=== PATIENT | male | born 1960 | race Caucasian/White ===

== ENCOUNTER 2021-12-14 11:00 | Inpatient (IN) | payer OTHER ==
[2021-12-14 13:06] VITALS: BMI 21.6
[2021-12-14] MEDS ORDERED: MAGNESIUM HYDROX 2400MG/30ML ORAL SUSPENSION 30 ML CUP PO PRN (21:05)
[2021-12-14] MEDS ORDERED: NICOTINE POLACRILEX 2 MG GUM BUC PRN (21:05)
[2021-12-14] MEDS ORDERED: P-EPHED 60MG/TRIPROLIDI 2.5MG TABLET PO PRN (21:05)
[2021-12-14] MEDS ORDERED: ACETAMINOPHEN 325 MG TABLET (FP) PO PRN (21:05)
[2021-12-14] MEDS ORDERED: MAGNESIUM CITRATE 300 ML BOTTLE PO PRN (21:05)
[2021-12-14] MEDS ORDERED: guaiFENesin 200 MG/10 ML 10 ML UNIT-DOSE CUPS PO PRN (21:05)
[2021-12-14] MEDS ORDERED: BENZOCAINE/MENTHOL (CHLORASEPTIC ) LOZENGE MM PRN (21:05)
[2021-12-14] MEDS ORDERED: NALOXONE HCL (KLOXXADO) 8 MG SPRAY NS PRN (21:05)
[2021-12-14] MEDS ORDERED: IBUPROFEN 400 MG TABLET (FP) PO PRN (21:05)
[2021-12-14] MEDS ORDERED: IBUPROFEN 600 MG TABLET (FP) PO PRN (21:05)
[2021-12-14] MEDS ORDERED: LOPERAMIDE HCL 2 MG CAPSULE PO PRN (21:05)
[2021-12-14] MEDS ORDERED: BISMUTH SUBSALICYLATE 524 MG/30 ML PO PRN (21:05)
[2021-12-14] MEDS ORDERED: hydrOXYzine PAMOATE 25 MG CAPSULE (FP) PO ONE (23:32)
[2021-12-14] MEDS ORDERED: METOPROLOL TARTRATE 25 MG TABLET (FP) ONE (23:33)
[2021-12-14] MEDS: METOPROLOL TARTRATE 25 MG TABLET (FP) PO SCH (23:33)
[2021-12-14] MEDS: THIAMINE HCL 100 MG TABLET (FP) PO SCH (23:33)
[2021-12-14] MEDS: hydrOXYzine PAMOATE 25 MG CAPSULE (FP) PO SCH (23:33)
[2021-12-14] MEDS: MELATONIN 5 MG TABLETS PO SCH (23:33)
[2021-12-15] MEDS ORDERED: hydrOXYzine PAMOATE 25 MG CAPSULE (FP) PO ONE ×2 (06:48→10:01)
[2021-12-15] MEDS ORDERED: METOPROLOL TARTRATE 25 MG TABLET (FP) ONE (06:48)
[2021-12-15] MEDS: hydrOXYzine PAMOATE 25 MG CAPSULE (FP) PO SCH ×5 (07:25→22:21)
[2021-12-15] MEDS ORDERED: cloNIDine HCL 0.1 MG TABLET ONE (09:26)
[2021-12-15] MEDS ORDERED: cloNIDine HCL 0.1 MG TABLET PO ONE (09:30)
[2021-12-15] MEDS: PRENATAL VITAMINS W/ FOLIC ACID TABLET (FP) PO SCH (09:34)
[2021-12-15] MEDS: TAMSULOSIN HCL 0.4 MG CAP PO SCH (11:56)
[2021-12-15] MEDS: PANTOPRAZOLE 40 MG TABLET PO SCH (11:58)
[2021-12-15] MEDS: NICOTINE 14 MG/24 HOURS TOPICAL PATCH TD SCH (11:58)
[2021-12-15] MEDS: MONTELUKAST NA 10 MG TABLET PO SCH (11:58)
[2021-12-15] MEDS: FERROUS SO4 325 MG TABLET (FP) PO SCH (11:59)
[2021-12-15] MEDS: METHOCARBAMOL 500 MG TABLET PO PRN (13:27)
[2021-12-15] MEDS: METOPROLOL TARTRATE 25 MG TABLET (FP) PO SCH ×2 (13:38→22:21)
[2021-12-15] MEDS: LIPASE/PROTEASE/AMYLASE 6,000 UNIT CAPSULE PO SCH ×2 (15:47→19:15)
[2021-12-15] MEDS: THIAMINE HCL 100 MG TABLET (FP) PO SCH (22:21)
[2021-12-15] MEDS: MELATONIN 5 MG TABLETS PO SCH (22:21)
[2021-12-16] MEDS: hydrOXYzine PAMOATE 25 MG CAPSULE (FP) PO SCH ×5 (05:18→22:15)
[2021-12-16] MEDS: LIPASE/PROTEASE/AMYLASE 6,000 UNIT CAPSULE PO SCH ×3 (08:05→17:20)
[2021-12-16] MEDS ORDERED: chlordiazePOXIDE HCL 25 MG CAPSULE PO PRN (09:24)
[2021-12-16] MEDS: PANTOPRAZOLE 40 MG TABLET PO SCH (10:16)
[2021-12-16] MEDS: METOPROLOL TARTRATE 25 MG TABLET (FP) PO SCH ×2 (10:16→22:15)
[2021-12-16] MEDS: TAMSULOSIN HCL 0.4 MG CAP PO SCH (10:16)
[2021-12-16] MEDS: PRENATAL VITAMINS W/ FOLIC ACID TABLET (FP) PO SCH (10:17)
[2021-12-16] MEDS: FERROUS SO4 325 MG TABLET (FP) PO SCH (10:17)
[2021-12-16] MEDS: MONTELUKAST NA 10 MG TABLET PO SCH (10:17)
[2021-12-16] MEDS: NICOTINE 14 MG/24 HOURS TOPICAL PATCH TD SCH (10:18)
[2021-12-16] MEDS: chlordiazePOXIDE HCL 25 MG CAPSULE PO SCH ×3 (10:19→22:17)
[2021-12-16 10:22] LABS: HEMATOCRIT 48.3 % (35.4-49); HEMOGLOBIN 16.5 GM/dL (11.7-16.9); MCH 35.8 pg (25.7-33.7); MCHC 34.1 g/dl (32.0-35.9); MEAN CELL VOLUME 105.2 fl (80-96); MEAN PLT VOLUME 9.5 fl (7.5-11.1); PLATELET COUNT 132 10^3/uL (134-434); RBC 4.59 M/mm3 (4.00-5.60); RDW 13.3 % (11.9-15.9); WHITE BLOOD COUNT 6.5 K/mm3 (4.0-10.0)
[2021-12-16 10:36] LABS: ALBUMIN 2.6 g/dl (3.4-5.0); BLOOD UREA NITROGEN 5.9 mg/dL (7-18); CALCIUM 9.1 mg/dL (8.5-10.1)
[2021-12-16 10:39] LABS: CREATININE 0.7 mg/dL (0.55-1.3)
[2021-12-16 10:41] LABS: BILIRUBIN,TOTAL 0.4 mg/dL (0.2-1); TOT PROT 5.9 g/dl (6.4-8.2)
[2021-12-16] MEDS: THIAMINE HCL 100 MG TABLET (FP) PO SCH (22:15)
[2021-12-16] MEDS: MELATONIN 5 MG TABLETS PO SCH (22:16)
[2021-12-17] MEDS: hydrOXYzine PAMOATE 25 MG CAPSULE (FP) PO SCH ×5 (05:26→22:56)
[2021-12-17] MEDS: chlordiazePOXIDE HCL 25 MG CAPSULE PO SCH ×2 (05:26→10:15)
[2021-12-17] MEDS: LIPASE/PROTEASE/AMYLASE 6,000 UNIT CAPSULE PO SCH ×3 (07:15→17:44)
[2021-12-17] MEDS: METHOCARBAMOL 500 MG TABLET PO PRN (07:36)
[2021-12-17] MEDS: METOPROLOL TARTRATE 25 MG TABLET (FP) PO SCH ×2 (10:16→22:15)
[2021-12-17] MEDS: MONTELUKAST NA 10 MG TABLET PO SCH (10:16)
[2021-12-17] MEDS: FERROUS SO4 325 MG TABLET (FP) PO SCH (10:16)
[2021-12-17] MEDS: PANTOPRAZOLE 40 MG TABLET PO SCH (10:16)
[2021-12-17] MEDS: TAMSULOSIN HCL 0.4 MG CAP PO SCH (10:16)
[2021-12-17] MEDS: NICOTINE 14 MG/24 HOURS TOPICAL PATCH TD SCH (10:17)
[2021-12-17] MEDS: PRENATAL VITAMINS W/ FOLIC ACID TABLET (FP) PO SCH (10:17)
[2021-12-17] MEDS: MAG HYDROX/AL HYDROX/SIMETH 30 ML UNIT-DOSE CUP PO PRN (12:41)
[2021-12-17] MEDS ORDERED: LORazepam 1 MG TABLET PO PRN (15:23)
[2021-12-17] MEDS ORDERED: LIPASE/PROTEASE/AMYLASE 6,000 UNIT CAPSULE PO PRN (15:36)
[2021-12-17] MEDS: LORazepam 2 MG TABLET PO SCH ×2 (17:45→22:27)
[2021-12-17] MEDS: FAMOTIDINE 20 MG TABLET PO SCH (22:15)
[2021-12-17] MEDS: THIAMINE HCL 100 MG TABLET (FP) PO SCH (22:15)
[2021-12-17] MEDS: MELATONIN 5 MG TABLETS PO SCH (22:56)
[2021-12-18] MEDS ORDERED: chlordiazePOXIDE HCL 25 MG CAPSULE PO SCH (05:00)
[2021-12-18] MEDS: hydrOXYzine PAMOATE 25 MG CAPSULE (FP) PO SCH ×5 (05:11→22:20)
[2021-12-18] MEDS: LORazepam 2 MG TABLET PO SCH ×4 (05:11→22:20)
[2021-12-18] MEDS: LIPASE/PROTEASE/AMYLASE 6,000 UNIT CAPSULE PO SCH ×3 (07:55→17:26)
[2021-12-18] MEDS: METHOCARBAMOL 500 MG TABLET PO PRN (10:27)
[2021-12-18] MEDS: TAMSULOSIN HCL 0.4 MG CAP PO SCH (10:27)
[2021-12-18] MEDS: METOPROLOL TARTRATE 25 MG TABLET (FP) PO SCH ×2 (10:27→22:20)
[2021-12-18] MEDS: FAMOTIDINE 20 MG TABLET PO SCH ×2 (10:27→22:20)
[2021-12-18] MEDS: NICOTINE 14 MG/24 HOURS TOPICAL PATCH TD SCH (10:27)
[2021-12-18] MEDS: DICYCLOMINE HCL 10 MG CAPSULE PO PRN (10:27)
[2021-12-18] MEDS: PRENATAL VITAMINS W/ FOLIC ACID TABLET (FP) PO SCH (10:28)
[2021-12-18] MEDS: MONTELUKAST NA 10 MG TABLET PO SCH (10:28)
[2021-12-18] MEDS: MELATONIN 5 MG TABLETS PO SCH (22:20)
[2021-12-18] MEDS: THIAMINE HCL 100 MG TABLET (FP) PO SCH (22:20)
[2021-12-19] MEDS ORDERED: chlordiazePOXIDE HCL 10 MG CAPSULE PO PRN
[2021-12-19] MEDS ORDERED: chlordiazePOXIDE HCL 10 MG CAPSULE PO SCH (05:00)
[2021-12-19] MEDS: hydrOXYzine PAMOATE 25 MG CAPSULE (FP) PO SCH ×5 (05:26→22:24)
[2021-12-19] MEDS: LORazepam 1 MG TABLET PO SCH ×4 (05:26→22:22)
[2021-12-19] MEDS: LIPASE/PROTEASE/AMYLASE 6,000 UNIT CAPSULE PO SCH ×3 (07:46→17:45)
[2021-12-19] MEDS: METHOCARBAMOL 500 MG TABLET PO PRN (10:24)
[2021-12-19] MEDS: NICOTINE 14 MG/24 HOURS TOPICAL PATCH TD SCH (10:24)
[2021-12-19] MEDS: METOPROLOL TARTRATE 25 MG TABLET (FP) PO SCH ×2 (10:24→22:21)
[2021-12-19] MEDS: FAMOTIDINE 20 MG TABLET PO SCH ×2 (10:24→22:21)
[2021-12-19] MEDS: PRENATAL VITAMINS W/ FOLIC ACID TABLET (FP) PO SCH (10:25)
[2021-12-19] MEDS: MONTELUKAST NA 10 MG TABLET PO SCH (10:25)
[2021-12-19] MEDS: TAMSULOSIN HCL 0.4 MG CAP PO SCH (10:25)
[2021-12-19 16:56] LABS: PH,URINE 8.5 (5.0-8.0); URINE APPEARANCE CLEAR; URINE BILIRUBIN NEGATIVE (NEGATIVE); URINE COLOR YELLOW; URINE GLUCOSE (UA) NEGATIVE (NEGATIVE); URINE KETONE NEGATIVE (NEGATIVE); URINE LEUK ESTERASE NEGATIVE (NEGATIVE); URINE NITRITE NEGATIVE (NEGATIVE); URINE PROTEIN NEGATIVE (NEGATIVE); URINE UROBILINOGEN 0.2 mg/dL (0.2-1.0)
[2021-12-19] MEDS: THIAMINE HCL 100 MG TABLET (FP) PO SCH (22:21)
[2021-12-19] MEDS: MELATONIN 5 MG TABLETS PO SCH (22:23)
[2021-12-20] MEDS ORDERED: LORazepam 0.5 MG TABLET PO PRN
[2021-12-20] MEDS: ONDANSETRON *ODT* 4 MG TABLET SL PRN ×2 (02:39→10:52)
[2021-12-20] MEDS: DICYCLOMINE HCL 10 MG CAPSULE PO PRN (02:39)
[2021-12-20] MEDS ORDERED: chlordiazePOXIDE HCL 10 MG CAPSULE PO SCH (05:00)
[2021-12-20] MEDS: MAG HYDROX/AL HYDROX/SIMETH 30 ML UNIT-DOSE CUP PO PRN (06:15)
[2021-12-20] MEDS: hydrOXYzine PAMOATE 25 MG CAPSULE (FP) PO SCH ×4 (06:15→17:25)
[2021-12-20] MEDS: LORazepam 0.5 MG TABLET PO SCH ×4 (06:15→22:14)
[2021-12-20] MEDS ORDERED: LISINOPRIL 10 MG TABLET PO ONE (06:16)
[2021-12-20] MEDS: ACETAMINOPHEN 325 MG TABLET (FP) PO PRN (06:38)
[2021-12-20] MEDS: LIPASE/PROTEASE/AMYLASE 6,000 UNIT CAPSULE PO SCH ×3 (07:57→16:47)
[2021-12-20] MEDS ORDERED: cloNIDine HCL 0.1 MG TABLET PO ONE (08:00)
[2021-12-20] MEDS: PRENATAL VITAMINS W/ FOLIC ACID TABLET (FP) PO SCH (10:49)
[2021-12-20] MEDS: METHOCARBAMOL 500 MG TABLET PO PRN (10:49)
[2021-12-20] MEDS: FAMOTIDINE 20 MG TABLET PO SCH ×2 (10:49→22:14)
[2021-12-20] MEDS: MONTELUKAST NA 10 MG TABLET PO SCH (10:49)
[2021-12-20] MEDS: TAMSULOSIN HCL 0.4 MG CAP PO SCH (10:49)
[2021-12-20] MEDS: METOPROLOL TARTRATE 25 MG TABLET (FP) PO SCH ×2 (10:50→22:17)
[2021-12-20] MEDS: NICOTINE 14 MG/24 HOURS TOPICAL PATCH TD SCH (10:50)
[2021-12-20 19:25] VITALS: RESP 16
[2021-12-20] MEDS: THIAMINE HCL 100 MG TABLET (FP) PO SCH (22:14)
[2021-12-20] MEDS: MELATONIN 5 MG TABLETS PO SCH (22:15)
[2021-12-21] MEDS: MAG HYDROX/AL HYDROX/SIMETH 30 ML UNIT-DOSE CUP PO PRN (02:17)
[2021-12-21] MEDS ORDERED: chlordiazePOXIDE HCL 10 MG CAPSULE PO ONE (05:00)
[2021-12-21] MEDS ORDERED: LORazepam 0.5 MG TABLET PO ONE (05:00)
[2021-12-21] MEDS: ACETAMINOPHEN 325 MG TABLET (FP) PO PRN (05:22)
[2021-12-21] MEDS: LIPASE/PROTEASE/AMYLASE 6,000 UNIT CAPSULE PO SCH (07:04)
[2021-12-21 09:02] VITALS: BP 137/93; PULSE 91; TEMP 98
== END 2021-12-21 10:05 | disposition home or self-care (01) | DRG 897 ==
LOC: YASAS 11:00 → UNDOADMIN 12-15 11:27 → Y6N 12-15 11:27
PROVIDERS: ADMIT Allergy & Immunology; ATTEND Surgery
PROC: HZ2ZZZZ Detoxification Services for Substance Abuse Treatment (ICD-10-PCS; principal; 2021-12-15)
DX: F10.230 Alcohol dependence with withdrawal, uncomplicated (principal); F17.210 Nicotine dependence, cigarettes, uncomplicated; F10.282 Alcohol dependence with alcohol-induced sleep disorder; F10.280 Alcohol dependence with alcohol-induced anxiety disorder; F19.24 Other psychoactive substance dependence with psychoactive substance-induced mood disorder; I10 Essential (primary) hypertension; J45.909 Unspecified asthma, uncomplicated; K21.9 Gastro-esophageal reflux disease without esophagitis; N40.0 Benign prostatic hyperplasia without lower urinary tract symptoms; Z86.2 Personal history of diseases of the blood and blood-forming organs and certain disorders involving the immune mechanism; Z86.69 Personal history of other diseases of the nervous system and sense organs; Z87.19 Personal history of other diseases of the digestive system
CPT/HCPCS: 36415; 80053; 81003; 85027; 86780; 87811; 93005; 93010; C9803-CS; Q0162; U0003; U0005